=== PATIENT | male | born 1970 | race Caucasian/White ===

== ENCOUNTER 2021-06-05 14:08 | Emergency (ER) | payer MEDICARE, OTHER ==
[2021-06-05 14:14] VITALS: RESP 18; TEMP 98.2
[2021-06-05] MEDS ORDERED: SODIUM CHLORIDE 0.9% 1,000 ML IV STA (14:58)
[2021-06-05] MEDS ORDERED: levETIRAcetam IV 500 MG in SODIUM CHLORIDE 0.9% 100 ML IVPB STA (14:59)
[2021-06-05 15:29] VITALS: BP 113/69; PULSE 76
[2021-06-05 15:42] LABS: Basophils % (A) 0 %; Eosinophils # (A) 0.1 k/uL (0-0.7); Eosinophils % (A) 1 %; HCT 36.4 % (39.0-53.0); HGB 12.2 gm/dL (13.0-17.5); Lymphocytes # (A) 0.6 k/uL (1.0-4.8); Lymphocytes % (A) 6 %; MCH 34.6 pg (25.0-35.0); MCHC 33.5 g/dL (31.0-37.0); MCV 103.4 fL (80.0-100.0); Macrocytosis Slight; Monocytes # (A) 0.4 k/uL (0-1.0); Monocytes % (A) 4 %; Neutrophils % (A) 89 %; Platelet Count 283 k/uL (150-450); RBC 3.52 m/uL (4.30-5.90); RDW 12.8 % (11.5-15.5); WBC 10.1 k/uL (3.8-10.6)
[2021-06-05 15:55] LABS: Albumin 3.3 g/dL (3.5-5.0); Calcium 8.9 mg/dL (8.4-10.2); Potassium 3.7 mmol/L (3.5-5.1); Total Bilirubin 0.5 mg/dL (0.2-1.3); Total Protein 6.3 g/dL (6.3-8.2)
--- NOTE | 2021-06-05 16:16 | CT ---
EXAMINATION TYPE: CT brain wo con DATE OF EXAM: 06/05/2021 COMPARISON: None HISTORY: 50-year-old male Seizure. TECHNIQUE: Examination was done in axial plane without intravenous contrast. Coronal and sagittal r econstructions performed. CT DLP: 1232.4 mGycm Automated exposure control for dose reduction was used. FINDINGS: There is no evidence of acute intracranial hemorrhage, acute ischemic changes, mass, mass-effect, or extra-axial fluid collection. There is no effacement of cerebral sulci or basal subarachnoid cister ns. There is no hydrocephalus. There is no midline shift. De La Rosa-white matter distinction is preserv ed. Mild cerebral cortical volume loss. Benign hyperostosis frontalis interna. Paranasal sinuses and mastoid air cells well pneumatized. Orbi ts and globes are intact. IMPRESSION: Mild cerebral atrophy. No acute intracranial abnormality seen. Consider MRI evaluation.
--- NOTE | 2021-06-05 17:03 | ED ---
General Adult HPI - General Chief complaint: Seizure Stated complaint: seizure Time Seen by Provider: 06/05/21 14:28 Source: EMS Mode of arrival: EMS - History of Present Illness Initial comments: 50-year-old male presents to the emergency room for a chief complaint of seizure. Patient's sister is at bedside. She states that patient was at his group facility as he has a history of cognitive delay. He apparently had 2 seizures here lasting about a minute each. He was a little post ictal after. She reports that patient does have a history of seizures and takes medications for this. He only has a few a year.Patient has no other complaints at this time including shortness of breath, chest pain, abdominal pain, nausea or vomiting, headache, or visual changes. - Related Data Home Medications Medication Instructions Recorded Confirmed Cholecalciferol [Vitamin D3 (25 25 mcg PO DAILY@82906/05/21 06/05/21 Mcg = 1000 Iu)] Escitalopram [Lexapro] 10 mg PO DAILY@82906/05/21 06/05/21 Felbamate 1,200 mg PO QID 06/05/21 06/05/21 Levothyroxine Sodium [Synthroid] 100 mcg PO DAILY@82906/05/21 06/05/21 Magnesium Oxide [Magox 400] 400 mg PO DAILY@82906/05/21 06/05/21 Metoprolol Succinate [Toprol XL] 50 mg PO DAILY@82906/05/21 06/05/21 Omeprazole 40 mg PO DAILY@82906/05/21 06/05/21 Potassium Chloride [Klor-Con 20] 20 meq PO DAILY@82906/05/21 06/05/21 Tamsulosin HCl [Flomax] 0.4 mg PO DAILY@82906/05/21 06/05/21 Zonisamide 100 mg PO QID 06/05/21 06/05/21 levETIRAcetam [Keppra] 750 mg PO QID 06/05/21 06/05/21 Allergies Allergy/AdvReac Type Severity Reaction Status Date / Time No Known Allergies Allergy Verified 06/05/21 15:51 Review of Systems ROS Statement: Those systems with pertinent positive or pertinent negative responses have been documented in the HPI. ROS Other: All systems not noted in ROS Statement are negative. Past Medical History Past Medical History: GERD/Reflux, Hypertension, Seizure Disorder, Thyroid Disorder Additional Past Medical History / Comment(s): Autism, cognitively delayed, poor historian. Past Surgical History: Unable to Obtain Past Psychological History: Unable to Obtain Smoking Status: Unknown if ever smoked General Exam General appearance: alert, in no apparent distress Head exam: Present: atraumatic Eye exam: Present: normal appearance, PERRL, EOMI. Absent: scleral icterus, conjunctival injection ENT exam: Present: normal exam, mucous membranes moist Neck exam: Present: normal inspection, full ROM. Absent: tenderness Respiratory exam: Present: normal lung sounds bilaterally. Absent: respiratory distress, wheezes Cardiovascular Exam: Present: regular rate, normal rhythm, normal heart sounds GI/Abdominal exam: Present: soft, normal bowel sounds. Absent: distended, tenderness Neurological exam: Present: alert, oriented X3 Course Vital Signs 06/05/21 06/05/21 14:09 15:28 Temperature 98.2 F Pulse Rate 101 H 76 Respiratory 18 18 Rate Blood Pressure 127/79 113/69 O2 Sat by Pulse 100 96 Oximetry Medical Decision Making - Medical Decision Making Vitals are stable. Patient is well-appearing. He is alert and interactive. Laboratory evaluation was obtained which was unremarkable. Patient does have a creatinine of 1.62. It was confirmed that he has chronic kidney disease by his sister. CT brain shows no acute intracranial abnormality. Patient reevaluated, patient is talking, ambulatory. This time patient can be discharged home to follow-up with his neurologist after getting keppra IV. I do has levels pending of his seizure medication that he will follow up on. - Lab Data Result diagrams: 06/05/21 15:26 06/05/21 15:26 Lab Results 06/05/21 06/05/21 06/05/21 Range/Units 15:26 15:26 15:26 WBC 10.1 (3.8-10.6) k/uL RBC 3.52 L (4.30-5.90) m/uL Hgb 12.2 L (13.0-17.5) gm/dL Hct 36.4 L (39.0-53.0) % MCV 103.4 H (80.0-100.0) fL MCH 34.6 (25.0-35.0) pg MCHC 33.5 (31.0-37.0) g/dL RDW 12.8 (11.5-15.5) % Plt Count 283 (150-450) k/uL MPV 7.0 Neutrophils % 89 % Lymphocytes % 6 % Monocytes % 4 % Eosinophils % 1 % Basophils % 0 % Neutrophils # 9.0 H (1.3-7.7) k/uL Lymphocytes # 0.6 L (1.0-4.8) k/uL Monocytes # 0.4 (0-1.0) k/uL Eosinophils # 0.1 (0-0.7) k/uL Basophils # 0.0 (0-0.2) k/uL Macrocytosis Slight Sodium 139 (137-145) mmol/L Potassium 3.7 (3.5-5.1) mmol/L Chloride 107 (98-107) mmol/L Carbon Dioxide 23 (22-30) mmol/L Anion Gap 9 mmol/L BUN 24 H (9-20) mg/dL Creatinine 1.62 H (0.66-1.25) mg/dL Est GFR (CKD-EPI)AfAm 56 (>60 ml/min/1.73 sqM) Est GFR (CKD-EPI)NonAf 48 (>60 ml/min/1.73 sqM) Glucose 113 H (74-99) mg/dL Calcium 8.9 (8.4-10.2) mg/dL Magnesium 2.0 (1.6-2.3) mg/dL Total Bilirubin 0.5 (0.2-1.3) mg/dL AST 24 (17-59) U/L ALT 14 (4-49) U/L Alkaline Phosphatase 64 (38-126) U/L Total Protein 6.3 (6.3-8.2) g/dL Albumin 3.3 L (3.5-5.0) g/dL Disposition Clinical Impression: Recurrent seizures Disposition: HOME SELF-CARE Condition: Good Instructions (If sedation given, give patient instructions): Recurrent Seizures in Adults (ED) Additional Instructions: Continue to take seizure medication at home. Follow-up with patient's neurologist and primary care doctor. Return to the emergency room for any worsening symptoms. Is patient prescribed a controlled substance at d/c from ED?: No Referrals: Nonstaff,Physician [Primary Care Provider] - 1-2 days Time of Disposition: 17:03
== END 2021-06-05 17:18 | disposition home or self-care (01) ==
LOC: EC 14:08
DX: G40.909 Epilepsy, unspecified, not intractable, without status epilepticus (principal); I10 Essential (primary) hypertension; K21.9 Gastro-esophageal reflux disease without esophagitis; Z79.83 Long term (current) use of bisphosphonates
CPT/HCPCS: 36415; 80053; 80177; 80203; 83735; 85025; 70450; 99285; 96365; 96361; J1953